=== PATIENT | female | born 1955 | race Caucasian/White ===

== ENCOUNTER 2023-08-29 13:19 | Emergency (ER) | payer MEDICARE, OTHER ==
[2023-08-29] MEDS ORDERED: Midazolam 1 MG/ML 2 ML SDV IV ONE ×2 (13:20)
[2023-08-29] MEDS ORDERED: fentaNYL 100 MCG/2 ML SDV IV ONE (13:20)
[2023-08-29] MEDS: HYDROmorphone 2 MG/ML SDV IM ONE (13:45)
[2023-08-29] MEDS: Ondansetron 4 MG Tab.DIS PO ONE (13:45)
[2023-08-29] MEDS: Ketorolac 30 MG/ML SDV IVPUSH ONE (14:30)
[2023-08-29] MEDS ORDERED: Sodium Chloride 0.9% 10 ML Syringe FLUSH PRN (14:43)
[2023-08-29] MEDS: HYDROmorphone 2 MG/ML SDV IVPUSH ONE (17:14)
== END 2023-08-29 16:42 | disposition home or self-care (01) ==
LOC: FB.ED 13:19
DX: S82.851A Displaced trimalleolar fracture of right lower leg, initial encounter for closed fracture (principal); S93.01XA Subluxation of right ankle joint, initial encounter; Z79.899 Other long term (current) drug therapy; X50.1XXA Overexertion from prolonged static or awkward postures, initial encounter
CPT/HCPCS: 27818; 73610-RT; 96372; 96374; 99283-25; 99284; J1170; J1885; J2250; J3010; Q0162